=== PATIENT | female | born 1990 | race Two or more races ===

== ENCOUNTER 2021-07-27 10:47 | Outpatient (REF) | payer OTHER, SELFPAY ==
[2021-07-28 15:54] LABS: COVID-19 RT-PCR UVMMC Result Negative (Negative)
== END 2021-07-27 10:48 | disposition home or self-care (01) ==
LOC: LBN 10:47
PROVIDERS: Visit Provider Physician Assistant
DX: Z20.822 Contact with and (suspected) exposure to COVID-19 (principal)
CPT/HCPCS: U0003

== ENCOUNTER 2021-11-17 03:22 | Outpatient (CLI) | payer OTHER, SELFPAY | END 2021-11-17 03:23 | disposition home or self-care (01) | LOC: LBO 03:22 | PROVIDERS: Visit Provider Nurse Practitioner Family ==

== ENCOUNTER 2021-11-29 02:32 | Outpatient (CLI) | payer OTHER, SELFPAY ==
[2021-11-29 07:48] LABS: Absolute Basophil Count 0.03 10^3/uL (0.0-0.2); Absolute Eosinophil Count 0.08 10^3/uL (0.0-0.7); Absolute Lymphocyte Count 1.96 10^3/uL (1.2-3.4); Absolute Monocyte Count 0.47 10^3/uL (0.1-0.8); Absolute Neutrophil Count 2.95 10^3/uL (1.2-6.7); Basophils % 0.5; Eosinophils % 1.5; HCT 39.4 % (36.0-46.0); HGB 13.2 g/dL (11.2-15.7); Lymphocytes % 35.7; MCH 29.1 pg (27.0-33.0); MCHC 33.5 % (32.0-36.0); MPV 9.5 fL (8.0-11.0); Monocytes % 8.6; Neutrophils % 53.7; Nucleated RBC 0 %; Platelet Count 266 10^3/uL (130-400); RBC 4.53 10^6/uL (3.93-5.22); RDW 12.3 % (11.7-14.6); RDW-SD 39.2 fL; WBC 5.49 10^3/uL (4.4-10.8)
[2021-11-29 09:01] LABS: ALT 23 U/L (14-59); AST 14 U/L (15-37); Albumin 3.8 g/dL (3.4-5.0); Alkaline Phosphatase 43 U/L (46-116); Anion Gap 7.9 mmol/L (3-11); BUN 7 mg/dL (7-18); Bilirubin, Total 0.5 mg/dL (0.2-1.0); CO2 27.1 mmol/L (21.0-32.0); CREATININE 0.7 mg/dL (0.55-1.02); Calcium 8.4 mg/dL (8.5-10.1); Chloride 107 mmol/L (98-107); FREE T4 0.95 ng/dL (0.76-1.46); Glucose 91 mg/dL (74-106); Sodium 142 mmol/L (136-145); TSH 1.09 uIU/mL (0.36-3.74)
[2021-11-29 09:39] LABS: Vitamin B12 437 pg/mL (193-986)
[2021-11-30 00:41] LABS: Vitamin D 25 Total 45.7 ng/mL (30-100)
== END 2021-11-29 02:33 | disposition home or self-care (01) ==
PROVIDERS: Visit Provider Nurse Practitioner Family
DX: R45.4 Irritability and anger (principal); F32.A Depression, unspecified; F10.10 Alcohol abuse, uncomplicated
CPT/HCPCS: 36415; 80053; 82306; 82607; 84439; 84443; 85025

== ENCOUNTER 2021-12-04 18:10 | Outpatient (REF) | payer OTHER, SELFPAY | END 2021-12-04 18:11 | disposition home or self-care (01) | LOC: LBN 18:10 | PROVIDERS: Visit Provider Physician Assistant Medical | DX: N39.0 Urinary tract infection, site not specified (principal) | CPT/HCPCS: 87086 ==

== ENCOUNTER 2022-03-13 17:22 | Outpatient (CLI) | payer OTHER, SELFPAY ==
--- NOTE | 2022-03-13 17:30 | DI.RAD_ITS ---
Exam(s) XR HAND RT COMPLETE EXAM: XR HAND RT COMPLETE CLINICAL HISTORY: right hand pain, r/o fracture 5th metacarpal pain TECHNIQUE: COMPARISON: No exams were available for comparison FINDINGS: Three views were obtained. No evidence of acute fracture or dislocation. IMPRESSION: RADIATION DOSE DELIVERED: Total DLP
--- NOTE | 2022-03-13 18:32 | DI.VRAD_ITS ---
Addendum created by Urbano Clemens MD on 03/13/2022 6:32:59 PM EDT: There may be diffuse soft tissue swelling present of the palmar aspect of the hand and fingers. Initial report created on 03/13/2022 6:32:13 PM EDT: PROCEDURE INFORMATION: Exam: XR Right Hand Exam date and time: 03/13/2022 5:43 PM Age: 32 years old Clinical indication: Injury or trauma; Other: Slapped a table; Swelling (edema); Right; Injury date: 03/13/2022; Injury details: PT states she slapped her hand on a table TECHNIQUE: Imaging protocol: Radiologic exam of the Right hand. Views: 3 or more views. COMPARISON: No relevant prior studies available. FINDINGS: Bones/joints: Bone mineralization is age-appropriate. There is no evidence of fracture. No evidence of dislocation. The joint spaces are adequately preserved; no significant degenerative narrowing and no bony erosion seen. Soft tissues: No radiopaque foreign body present. There is no significant soft tissue swelling present. IMPRESSION: No acute osseous abnormality. Dictated and Authenticated by: Urbano Clemens MD. Ordering:MINGO Cortes MD
== END 2022-03-13 17:42 ==
LOC: LBN 17:24 → DI 17:33
PROVIDERS: Visit Provider Physician Assistant
DX: M79.641 Pain in right hand (principal); R60.9 Edema, unspecified; W22.8XXA Striking against or struck by other objects, initial encounter
CPT/HCPCS: 73130

== ENCOUNTER 2022-10-04 15:55 | Outpatient (REF) | payer BC, SELFPAY ==
--- NOTE | 2022-10-04 14:00 | PAPFT_PTH ---
PATIENT: Gilda Barbosa LOC: [facility] U#:[id number] AGE/SX: 32/F ROOM: RE10/04/[address]: Parisa Posey : 1990 BED: DIS: 10/04/2022 SPEC #: [id number] RECD: 10/05/22 12:52 STATUS: EUGENEAugusto REQ #: [id number] CHANTE: 10/04/22 14:[address]: Parisa Posey DEPT: [facility] Cytology RECD BY: Lety Larkin ENTERED: 10/05/22 12:53 SP TYPE: PAPFT OT DR: Unknown,Unknown Tissues: 1 - CX/ENDOCX FOR PAP SMEARS Procedures: PAP THIN PREP/[facility] Screening HPV DNA PROBE Comments: [id number] (CHLAMYDIA/GC)
[2022-10-07 14:26] LABS: Chlamydia Result Negative (Negative); GC Result Negative (Negative)
== END 2022-10-04 15:56 | disposition home or self-care (01) ==
LOC: NCHCN 15:55
PROVIDERS: Visit Provider Registered Nurse
DX: Z11.51 Encounter for screening for human papillomavirus (HPV) (principal)
CPT/HCPCS: 87491; 87591; 88142; 87624

== ENCOUNTER → 2023-06-25 18:35 | Outpatient (CLI) | payer BC, SELFPAY ==
--- NOTE | 2023-06-25 19:01 | DI.RAD_ITS ---
Exam(s) XR FOOT LT COMPLETE EXAM: XR FOOT LT COMPLETE CLINICAL HISTORY: INJURY LEFT 5TH TOE, TENDERNESS TO LEFT 5TH TOE. TECHNIQUE: 2D digital imaging was performed. Three views. COMPARISON: No exams were available for comparison FINDINGS: BONES: No acute fracture is present.Deformity of the 4th metatarsal head consistent with old fracture . No bony destructive lesion is seen. JOINTS: Dislocation at the 5th metacarpophalangeal joint. Mild hallux valgus. SOFT TISSUE: Normal. IMPRESSION: Dislocation 5th MTP joint. DATA REPOSITORY: RADIATION DOSE DELIVERED:
--- NOTE | 2023-06-25 19:27 | DI.VRAD_ITS ---
PROCEDURE INFORMATION: Exam: XR Left Foot Exam date and time: 06/25/2023 7:06 PM Age: 33 years old Clinical indication: Injury or trauma; Work related; Blunt trauma; Foot; Injury date: 06/25/23; Injury details: Fall from ladder; Patient HX: Injury left 5th toe, tenderness to left 5th toe TECHNIQUE: Imaging protocol: Radiologic exam of the left foot. Views: 3 or more views. COMPARISON: No relevant prior studies available. FINDINGS: Bones/joints: The 5th metatarsophalangeal joint is dislocated. No fractures are observed in the 5th toe phalanges or the 5th toe metatarsal. A chronic-appearing fracture deformity is noted at the 4th metatarsal head. The 1st metatarsophalangeal joint is narrow, and moderate hallux valgus is observed. The medial sesamoid at the 1st MTP joint is bipartite. The tarsometatarsal joint is appropriately aligned. Soft tissues: Soft tissue swelling is noted in the forefoot, greatest adjacent to the 5th toe. IMPRESSION: Dislocation, 5th MTP joint. Dictated and Authenticated by: Luis Nash MD. Ordering:MARTITA SERRANO MD
== END ==
PROVIDERS: Visit Provider Nurse Practitioner Family
DX: S63.115A Dislocation of metacarpophalangeal joint of left thumb, initial encounter (principal)
CPT/HCPCS: 73630

== ENCOUNTER 2023-06-25 18:57 | Outpatient (REF) | payer BC, SELFPAY | END 2023-06-25 18:58 | disposition home or self-care (01) | LOC: LBN 18:57 | PROVIDERS: Visit Provider Nurse Practitioner Family | DX: N30.01 Acute cystitis with hematuria (principal) | CPT/HCPCS: 87077; 87086; 87186 ==

== ENCOUNTER 2023-06-25 20:10 | Emergency (ER) | payer BC, SELFPAY ==
[2023-06-25 20:19] VITALS: BP 120/50; PULSE 83; RESP 20; TEMP 36.8; O2SAT 99
--- NOTE | 2023-06-25 20:27 | W.ED.GENAD ---
Discharge Plan Disposition Patient Disposition: Home Discharge Details Clinical Impression: Closed traumatic dislocation of metatarsophalangeal (MTP) joint of lesser toe of left foot, Acute right-sided low back pain Primary Care Provider: Unknown,Unknown ED Provider: Holger Ayon [place] Meds and New Rx's Prescriptions: Continued clonidine HCl 0.1 mg tablet 0.2 mg PO DAILY 90 Days Qty: 180 1RF lamotrigine 100 mg tablet 100 mg PO DAILY Qty: 90 3RF Rx Instructions: to take with (2) 25 mg tabs for total daily dose of 150 mg lamotrigine 25 mg tablet 50 mg PO ONCE 90 Days Qty: 180 3RF Rx Instructions: take with (1) 100 mg tab for total daily dose of 150 mg Discharge Instructions Additional Instructions: You are seen in the emergency department for your toe pain. Your toe was relocated in the emergency department. Please return to the emergency department if you develop worsening pain any numbness or tingling or if you have any other concerns. Please wear this hard soled shoe for the next several days. For your pain please take medications as follows: 1. Take acetaminophen (Tylenol), 1,000 mg (two 500 mg tabs) every 6 hours 2. Take ibuprofen (Advil), 400 mg every 6 hours. HPI General Date/Time Provider Initiated Documentation: 06/25/23 20:13. HPI Narrative: HPI Is a 33-year-old female arriving to the emergency department via private vehicle in the setting of left little toe pain. 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 She reports that she was on a ladder and she inadvertently dropped a nail gun onto her foot as she fell. She reports she was 6 to 8 feet off off of the ground. She said that she did not hit her head. She did not lose consciousness. She initially went to urgent care. She had x-rays performed which showed a left little toe dislocation. Patient was sent back to the ED for relocation. She is not feeling short of breath. She did not strike her head. She has been amatory since her fall. She received a hard soled shoe at urgent care. She also complains of some right-sided low back pain. 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 She denies anticoagulants. She denies IV drug use. She reports that she has not noticed a rash to her back. She has had no recent spinal surgeries. She denies loss of bowel and bladder control. No history of malignancy. She reports that her pain is in the left side of her back on the right. No recent fevers chills nausea nor vomiting. Exam General: Well-appearing in no acute distress speaking in complete sentences. Head: Normocephalic, atraumatic. Eye: Extraocular eye movements intact. No conjunctival injection. No scleral icterus. Ear, nose, mouth, throat: Grossly normal inspection. Normal voice, handling secretions normally. Neck: Trachea midline. Cardiovascular: Well-perfused distal extremities. Respiratory: Nonlabored respiration. Clear lungs bilaterally. Gastrointestinal: Nondistended abdomen. Soft nontender. Back: Right lumbar paraspinal muscle tenderness. No rash to back. No midline tenderness. No step-offs. No deformities. Musculoskeletal: Right foot warm well perfused 2+ PT and DP pulses. Right little toe is held in flexion. Cap refill less than 2 seconds in the right little toe. Skin: Normal for age and race, grossly normal temperature and turgor. No acute rash. Neurologic: Alert and appropriate, no apparent acute deficits. Psychiatric: Mood and manner are appropriate. Grooming and personal hygiene are appropriate. MDM This is an overall very well-appearing normothermic and not tachycardic 33-year-old female with left fifth MTP dislocation for which an attempt at manual reduction following digital block was completed in the emergency department prior to repeat plain films. Midfoot stable so not concern for lis franc injury. No lateral foot tenderness to suggest Gil fracture. No heel tenderness to suggest calcaneal fracture. No history of axial loading and no talar tenderness to suggest talar fracture. No pain out of proportion to suggest necrotizing soft tissue infection. 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 No rash to her back to suggest zoster. No loss of bowel nor bladder control so doubt cauda equina. Patient lacks red flags for back pain. Specifically she has no history of malignancy so my suspicion is low for pathological fracture. She has no saddle anesthesia making cauda equina less likely. No history of IV drug use nor fevers to suggest increased risk for spinal epidural abscess. No history of recent spinal surgeries to suggest increased risk for spinal epidural hematoma. Furthermore patient is not anticoagulated. 10:35 PM Despite my initial attempt at closed reduction patient still had persistent dislocation for which Dr. Cano was called from orthopedics. Please see separate note from returning details of successful relocation of left little toe. Patient was made weightbearing as tolerated left lower extremity with primary care follow-up. She was given crutches. Chronic conditions affecting the care of the patient: N/A History obtained from an outside historian:N/A External record review: No [facility] [place] Medications: Acetaminophen ibuprofen Lidoderm Social determinants of health affecting disposition: N/A Management discussed with: Dr. Cano orthopedics Treatment/interventions considered: N/A Response to therapies provided: Left lower thyroid location Related Data Home Medications Medication Instructions Recorded Confirmed clonidine HCl 0.1 mg tablet 0.2 mg PO DAILY 90 days #180 tabs 07/06/22 07/06/22 lamotrigine 100 mg tablet 100 mg PO DAILY #90 tabs 07/11/22 lamotrigine 25 mg tablet 50 mg PO ONCE 90 days #180 tabs 07/11/22 Previous Rx's Medication Instructions Recorded clonidine HCl 0.1 mg tablet 0.2 mg PO DAILY 90 days #180 tabs 07/06/22 lamotrigine 100 mg tablet 100 mg PO DAILY #90 tabs 07/11/22 lamotrigine 25 mg tablet 50 mg PO ONCE 90 days #180 tabs 07/11/22 Allergies Allergy/AdvReac Type Severity Reaction Status Date / Time No Known Allergies Allergy Verified 06/25/23 20:22 General Stated Complaint: Orthopedic ELOISE: 4 PFSH All Active Problems (Updated 06/25/23 @ 21:21 by Holger Ayon MD) Closed traumatic dislocation of metatarsophalangeal (MTP) joint of lesser toe of left foot (Acute) Acute right-sided low back pain (Acute) Bipolar affect, depressed (Acute) Irritability (Acute) Medical History (Updated 06/25/23 @ 21:21 by Holger Ayon MD) Anxiety Depression History of abnormal cervical Pap smear Lyme disease PMDD (premenstrual dysphoric disorder) Surgical History History of surgical procedure (~2018) BL tibial tubular Osteotomy Family History (Updated 07/11/22 @ 15:27 by Nikko Segovia) Mother No problems noted. Father Alcohol use disorder Asthma Diabetes Sister No problems noted. Social History (Updated 07/11/22 @ 15:27 by Nikko Segovia) Smoking/Tobacco Use Status: Former Tobacco Use tobacco type: cigarettes Quit Date: 09/16/12 Tobacco: How many years used: 6 Second Hand Exposure: Yes Smoking risk assessment performed?: Yes Alcohol Intake: former Drug use: Never Substance use type: does not use Caregiver/Support person: No Housing: house Communication Needs: Deaf Do you need help understanding health information?: Rarely Pets and animals: Yes Pets and animals: cat(s) Sexually active: Yes Do you think of yourself as: bisexual Current gender identity: neither exclusively male nor female What is your relationship status?: refused to answer How often do you talk on the phone with friends or family?: once per week How often do you get together with friends or relatives?: twice per week How often do you attend mormonism or restorationist services?: decline to answer Do you belong to any clubs or organized social groups?: yes Panel score (0-1 are the most socially isolated patients): 2 What type of physical activity do you participate in: walking Duration: 15-30 minutes/day Frequency: daily Cherri/Mormon: No preference Seatbelt use: always Drive intox or ride w/intox hyster driver: No Course Vital Signs Vital signs: Vital Signs Temperature 36.8 C 06/25/23 20:19 Pulse 83 06/25/23 20:19 Respiratory Rate 20 06/25/23 20:19 Blood Pressure 120/50 L 06/25/23 20:19 Pulse Oximetry 99 06/25/23 20:19 Temperature 36.8 C 06/25/23 20:19 Temperature Source Core 06/25/23 20:19 Pulse 83 06/25/23 20:19 Respiratory Rate 20 06/25/23 20:19 Respiratory Effort Normal 06/25/23 20:22 Blood Pressure 120/50 L 06/25/23 20:19 Blood Pressure Position Sitting 06/25/23 20:19 Pulse Oximetry 99 06/25/23 20:19 Oxygen Delivery Method Room Air 06/25/23 20:19 Oxygen Flow Rate 0 06/25/23 20:19 Pain Level 6 06/25/23 20:19 Procedures Orthopedic Joint Reduction Joint #1: Time Out Performed: Yes Side: left Joint Reduction Location: toe (Left fifth MTP) Local Anesthesia: Lidocaine 2% Technique used: direct manipulation and other (Axilla traction) Post-reduction neuro exam: intact Post-reduction vascular: intact Post Reduction X-Ray Obtained: Yes
[2023-06-25] MEDS: Acetaminophen 500 MG TAB 1000 MG PO (20:52)
[2023-06-25] MEDS: Ibuprofen 600 MG TAB PO (20:53)
--- NOTE | 2023-06-25 21:15 | DI.RAD_ITS ---
Exam(s) XR TOE LT FIFTH EXAM: XR TOE LT FIFTH CLINICAL HISTORY: Status post relocation. TECHNIQUE: 2D digital imaging was performed. Three views. COMPARISON: CR,XR XR FOOT LT COMPLETE from 06/25/2023 FINDINGS: There has been no change in the dislocation at the 5th metatarsal phalangeal joint. Old fracture def ormity of the 4th metatarsal head again noted. DATA REPOSITORY: RADIATION DOSE DELIVERED:
[2023-06-25] MEDS: Lidocaine 5% Patch 1 PATCH TP (21:28)
--- NOTE | 2023-06-25 21:35 | DI.VRAD_ITS ---
PROCEDURE INFORMATION: Exam: XR Left Toe(s) Exam date and time: 06/25/2023 9:22 PM Age: 33 years old Clinical indication: Other: Post reduction TECHNIQUE: Imaging protocol: Radiologic exam of the left toes. Views: Minimum 2 views. COMPARISON: CR XR FOOT LT COMPLETE 06/25/2023 7:06 PM FINDINGS: Bones/joints: A mild subluxation continues at the 5th toe metatarsophalangeal joint. No acute fractures are observed. Chronic fracture deformity in the 4th metatarsal head is again noted. Soft tissues: Soft tissue swelling continues around the 5th toe. No abnormal soft tissue gas. IMPRESSION: 1. Improved alignment at the 5th metatarsophalangeal joint. The joint continues to be mildly subluxated. 2. Fracture deformity at the 4th metatarsal head. This appears chronic. Correlate for previous injury at the site. Dictated and Authenticated by: Luis Nash MD. Ordering:JORDAN Wren MD
--- NOTE | 2023-06-25 22:00 | DI.RAD_ITS ---
Exam(s) XR FLOURO OR C-ARM <1 HR EXAM: XR FLOURO OR C-ARM <1 HR CLINICAL HISTORY: Left toe pain. TECHNIQUE: 2D and realtime digital imaging was performed. COMPARISON: CR,XR XR TOE LT FIFTH from 06/25/2023 FINDINGS: Hard copy images show reduction of the previously noted dislocation at the 5th MTP joint. No fractur e. Please see procedure note for details. Fluoro time: 16seconds RADIATION DOSE DELIVERED: sonido Kim=0.12 mGy
[2023-06-25 22:37] VITALS: BP 120/50; PULSE 83; RESP 20; O2SAT 99
--- NOTE | 2023-06-25 23:23 | OCONE_ITS ---
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 She fell off a ladder and when she did a nail gun dropped onto her foot. She fell about 6 feet or so. She did not hit her head. She had immediate pain about the left foot, primarily around the fifth toe. She was seen in the urgent care who gave her a hard soled postop shoe and then sent her for an x-ray which demonstrated a dislocated fifth MTP joint. She was sent to the emergency department for evaluation. She denies pain elsewhere in the leg. She denies numbness or tingling. Close reduction tents were performed twice but were unsuccessful and thus was called in consultation. She denies any issues with this foot previously. Consults Consult date: 06/25/23 Requesting physician: Holger Ayon Consult Reason Left fifth toe MTP dislocation Assessment and Plan Assessment and plan (1) Closed traumatic dislocation of metatarsophalangeal (MTP) joint of lesser toe of left foot: Status: Resolved Assessment and plan: Whitney is a 33-year-old female who suffered a dislocation of the left fifth MTP joint. It was successfully reduced. It appeared stable. She was able to flex and extend the toe minimally after reduction. A dorsal blocking tape splint was then applied. She should wear [place] shoe for the next 3 to 4 days and then transition to regular shoes if feeling well. He needs no formal follow-up unles s she has persistent pain about the foot. Review of Systems All systems reviewed & are unremarkable except as noted in HPI and below PFSH All Active Problems (Updated 06/26/23 @ 06:31 by Scott Cano MD) Acute right-sided low back pain (Acute) Bipolar affect, depressed (Acute) Irritability (Acute) Medical History Anxiety Depression History of abnormal cervical Pap smear Lyme disease PMDD (premenstrual dysphoric disorder) Surgical History History of surgical procedure (~2018) BL tibial tubular Osteotomy Family History Mother No problems noted. Father Alcohol use disorder Asthma Diabetes Sister No problems noted. Social History Smoking/Tobacco Use Status: Former Tobacco Use tobacco type: cigarettes Quit Date: 09/16/12 Tobacco: How many years used: 6 Second Hand Exposure: Yes Smoking risk assessment performed?: Yes Alcohol Intake: former Drug use: Never Substance use type: does not use Caregiver/Support person: No Housing: house Communication Needs: Deaf Do you need help understanding health information?: Rarely Pets and animals: Yes Pets and animals: cat(s) Sexually active: Yes Do you think of yourself as: bisexual Current gender identity: neither exclusively male nor female What is your relationship status?: refused to answer How often do you talk on the phone with friends or family?: once per week How often do you get together with friends or relatives?: twice per week How often do you attend yazdanism or amish services?: decline to answer Do you belong to any clubs or organized social groups?: yes Panel score (0-1 are the most socially isolated patients): 2 What type of physical activity do you participate in: walking Duration: 15-30 minutes/day Frequency: daily Cherri/Holiness: No preference Seatbelt use: always Drive intox 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 No acute distress. Alert and orient x3. Evaluation of left foot shows swelling to the distal?lateral aspect of the left foot. No significant deformity. No skin discoloration. Obvious prominence with palpation of the base of the proximal phalanx of the left fifth toe. Sensation intact light touch over the deep and superficial peroneal nerve and tibial nerve. Capillary fill less than 3 seconds. Results Last Vital Signs Temp 36.8 C 06/25/23 20:19 Pulse 83 06/25/23 22:37 Resp 20 06/25/23 22:37 BP 120/50 L 06/25/23 22:37 Pulse Ox 99 06/25/23 22:37 Imaging Imaging Studies: X-ray of the left toe and foot was reviewed. These show a dorsally dislocated MTP joint the left fifth toe. No fracture. There is some deformity seen at the fourth metatarsal head which appears to be chronic in nature Procedures Orthopedic Joint Reduction Left fifth MTP: Time out performed: Yes Side: left Joint reduction location: toe Analgesia: nerve block Local anesthetic used: lidocaine 1% Amount of anesthetic used (ml): 5 Technique used: traction/counter-traction and direct manipulation Post-reduction neuro exam: intact Post-reduction vascular exam: intact Post-reduction x-ray obtained: Yes Post-reduction x-ray results: reduced Splint applied: Yes (A dorsal blocking tape splint was applied) Patient tolerated procedure: well
--- NOTE | 2023-07-01 09:22 | NUR.NOTE ---
Accessed Pt chart to obtain information for the [facility] document
== END 2023-06-25 22:37 | disposition home or self-care (01) ==
PROVIDERS: Emergency Provider Emergency Medicine
DX: S93.125A Dislocation of metatarsophalangeal joint of left lesser toe(s), initial encounter (principal); W20.8XXA Other cause of strike by thrown, projected or falling object, initial encounter; Y93.H3 Activity, building and construction; Y92.009 Unspecified place in unspecified non-institutional (private) residence as the place of occurrence of the external cause; Y99.0 Civilian activity done for income or pay
CPT/HCPCS: 28630; 76000; 99283; 73660

== ENCOUNTER 2024-05-25 13:15 | Outpatient (REF) | payer BC, SELFPAY | END 2024-05-25 13:16 | disposition home or self-care (01) | LOC: NCHCN 13:15 | PROVIDERS: Visit Provider Family Medicine | DX: R30.0 Dysuria (principal); B96.29 Other Escherichia coli [E. coli] as the cause of diseases classified elsewhere | CPT/HCPCS: 87077; 87086; 87186 ==

== ENCOUNTER 2024-06-17 09:15 | Outpatient (REF) | payer BC, SELFPAY | END 2024-06-17 09:16 | disposition home or self-care (01) | LOC: LBN 09:15 | PROVIDERS: Visit Provider Nurse Practitioner Women's Health | DX: N76.0 Acute vaginitis (principal) | CPT/HCPCS: 87480; 87510; 87660 ==

== ENCOUNTER 2024-09-11 14:51 | Outpatient (REF) | payer MEDICAID, SELFPAY ==
[2024-09-11 15:26] LABS: Bilirubin Negative (Negative); Blood Negative (Negative); Clarity Clear (Clear); Glucose Negative (Negative); Ketones Negative (Negative); Leukocyte Esterase Negative (Negative); Nitrite Negative (Negative); Specific Gravity <= 1.005 (1.005-1.025); Urobilinogen 0.2 mg/dL (Up to 0.2); pH 5.5 (5-8)
== END 2024-09-11 14:52 | disposition home or self-care (01) ==
LOC: LBN 14:51
PROVIDERS: Visit Provider Advanced Practice Midwife
DX: R30.0 Dysuria (principal)
CPT/HCPCS: 81003

== ENCOUNTER 2024-09-14 18:39 | Outpatient (REF) | payer MEDICAID, SELFPAY ==
[2024-09-16 11:47] LABS: Chlamydia Result Negative (Negative); GC Result Negative (Negative)
== END 2024-09-14 18:40 | disposition home or self-care (01) ==
LOC: LBN 18:39
PROVIDERS: Visit Provider Nurse Practitioner Women's Health
DX: Z11.3 Encounter for screening for infections with a predominantly sexual mode of transmission (principal); N76.0 Acute vaginitis; R30.0 Dysuria
CPT/HCPCS: 87491; 87591; 87480; 87510; 87660

== ENCOUNTER 2024-11-30 11:20 | Outpatient (REF) | payer MEDICAID, SELFPAY | END 2024-11-30 11:21 | disposition home or self-care (01) | LOC: LBN 11:20 | PROVIDERS: Visit Provider Nurse Practitioner Women's Health | DX: N76.0 Acute vaginitis (principal) | CPT/HCPCS: 87480; 87510; 87660 ==

== ENCOUNTER 2025-05-10 11:54 | Outpatient (REF) | payer MEDICAID, SELFPAY ==
[2025-05-12 12:24] LABS: Chlamydia Result Invalid (Negative); GC Result Invalid (Negative)
== END 2025-05-10 11:55 | disposition home or self-care (01) ==
LOC: LBN 11:54
PROVIDERS: Visit Provider Nurse Practitioner Women's Health
DX: N76.0 Acute vaginitis (principal); Z11.3 Encounter for screening for infections with a predominantly sexual mode of transmission
CPT/HCPCS: 87491; 87591; 87480; 87510; 87660

== ENCOUNTER 2025-06-14 10:31 | Outpatient (REF) | payer MEDICAID, SELFPAY | END 2025-06-14 10:32 | disposition home or self-care (01) | LOC: LBN 10:31 | PROVIDERS: Visit Provider Nurse Practitioner Women's Health | DX: R30.0 Dysuria (principal); N76.0 Acute vaginitis | CPT/HCPCS: 87086; 87480; 87510; 87660 ==

== ENCOUNTER 2025-07-06 21:03 | Outpatient (REF) | payer MEDICAID, SELFPAY | END 2025-07-06 21:04 | disposition home or self-care (01) | LOC: NCHCN 21:03 | PROVIDERS: Visit Provider Family Medicine | DX: J02.9 Acute pharyngitis, unspecified (principal) | CPT/HCPCS: 87070 ==

== ENCOUNTER 2025-08-30 11:39 | Outpatient (REF) | payer MEDICAID, SELFPAY ==
[2025-08-31 13:08] LABS: Chlamydia Result Negative (Negative); GC Result Negative (Negative)
== END 2025-08-30 11:40 | disposition home or self-care (01) ==
LOC: LBN 11:39
PROVIDERS: Visit Provider Nurse Practitioner Women's Health
DX: Z11.3 Encounter for screening for infections with a predominantly sexual mode of transmission (principal); N76.0 Acute vaginitis
CPT/HCPCS: 87491; 87591; 87480; 87510; 87660